=== PATIENT | female | born 1945 | race African-American/Black ===

== ENCOUNTER 2025-01-18 08:08 | Inpatient (IN) | payer MEDICARE, OTHER ==
[~2025-01-18] VITALS: Ht 160 cm; Wt 58.6 kg
[~2025-01-18 08:08] MED LIST: AMLO10TA80 PO; ATOR10TA69 MT; HYDR-4009 MT; LISI2.5T47 MT; MAG1TABL2 PO; METF-414 MT; OMEG100036 PO; TRAZ-252 MT; VIT1CAPS26 MT
[2025-01-18 09:17] LABS: BASOPHILS % 1.0 % (0.0-2.0); EOSINOPHILS % 0.9 % (0.0-5.0); HEMATOCRIT. 47.7 % (36.0-48.0); HEMOGLOBIN. 14.9 g/dL (12.0-16.0); LYMPHOCYTES % 12.1 % (20.0-50.0); MEAN PLATELET VOLUME 8.7 fl (7.4-10.4); MONOCYTES % 6.3 % (2.0-8.0); NEUTROPHILS % 79.7 % (40.0-76.0); PLATELET 246 x1000/uL (130-400); RED BLOOD CELL COUNT 5.41 mill/uL (4.2-5.4); RED CELL DISTRIBUTION WIDTH 16.8 % (11.6-14.6)
[2025-01-18 09:44] LABS: CREATININE 0.8 mg/dL (0.6-1.0); UREA NITROGEN BLOOD 18 mg/dL (9-23)
[2025-01-18 09:45] LABS: TROPONIN I HIGH SENSITIVITY 8 ng/L (3.0-34)
[2025-01-18] MEDS ORDERED: IPRATROPIUM/ALBUTEROL 0.5-3(2.5)MG/3ML NEB HHN PRN (12:00)
[2025-01-18] MEDS ORDERED: DOCUSATE SODIUM 100MG CAPSULE PO PRN (12:00)
[2025-01-18] MEDS ORDERED: ONDANSETRON HCL 4MG/2ML INJ IV PRN (12:00)
[2025-01-18] MEDS ORDERED: CLONIDINE 0.1MG TABLET PO PRN (12:00)
[2025-01-18] MEDS ORDERED: DEXTROSE 50% WATER 50ML SYRINGE IV PRN (12:15)
[2025-01-18] MEDS: HYDROCODONE/ACETAMINOPHEN 5/325MG TABLET PO PRN (12:50)
[2025-01-18] MEDS ORDERED: NALOXONE HCL 0.4MG/ML VIAL IV PRN (13:00)
[2025-01-18] MEDS: BLOOD SUGAR DIAGNOSTIC STRIP TEST SCH (13:00)
[2025-01-18] MEDS: INSULIN LISPRO 100 UNITS/ML SUBCUT SCH (13:20)
[2025-01-18] MEDS: AMLODIPINE 5MG TABLET PO SCH (14:14)
[2025-01-18 15:00] VITALS: BP 138/54; PULSE 68; RESP 20; TEMP 36.4; O2SAT 95
[2025-01-18 16:00] VITALS: BP 122/75; PULSE 74; RESP 18; TEMP 36.2; O2SAT 99
[2025-01-18] MEDS: HYDROCODONE/ACETAMINOPHEN 10/325MG TABLET PO PRN (17:01)
[2025-01-18 17:02] VITALS: BP 138/54; PULSE 68; RESP 18; TEMP 36.4736
[2025-01-18 17:06] LABS: TROPONIN I HIGH SENSITIVITY 20 ng/L (3.0-34)
[2025-01-18 17:15] LABS: FOLIC ACID (FOLATE) SERUM > 20.00 ng/mL (>5.38)
[2025-01-18 17:17] LABS: VITAMIN B12 SERUM > 2000 pg/mL (211-911)
[2025-01-18] MEDS ORDERED: IPRATROPIUM/ALBUTEROL 0.5-3(2.5)MG/3ML NEB HHN SCH (18:00)
[2025-01-18 20:20] VITALS: BP 128/62; PULSE 85; RESP 19; TEMP 36.6; O2SAT 94
[2025-01-18] MEDS: ATORVASTATIN CALCIUM 40MG TABLET PO SCH (20:35)
[2025-01-19] VITALS (9 sets, daily range): BP systolic 102–143; BP diastolic 50–76; PULSE 62–112; RESP 18–26; TEMP 36.1–36.6; O2SAT 82–100
[2025-01-19] MEDS ORDERED: LIDOCAINE HCL/EPINEPHRINE 1%-EPI 1:100,000 10ML VIAL INFIL SCH (01:00)
[2025-01-19] MEDS ORDERED: MDI INH SCH (09:00)
[2025-01-19] MEDS ORDERED: TIOTROPIUM BROMIDE INH SCH (09:00)
[2025-01-19] MEDS: LISINOPRIL 2.5MG TABLET PO SCH (09:25)
[2025-01-19 10:54] LABS: BASOPHILS % 0.4 % (0.0-2.0); EOSINOPHILS % 0.6 % (0.0-5.0); HEMATOCRIT. 46.3 % (36.0-48.0); HEMOGLOBIN. 14.6 g/dL (12.0-16.0); LYMPHOCYTES % 13.8 % (20.0-50.0); MEAN PLATELET VOLUME 9.1 fl (7.4-10.4); MONOCYTES % 5.6 % (2.0-8.0); NEUTROPHILS % 79.6 % (40.0-76.0); PLATELET 249 x1000/uL (130-400); RED BLOOD CELL COUNT 5.22 mill/uL (4.2-5.4); RED CELL DISTRIBUTION WIDTH 16.1 % (11.6-14.6)
[2025-01-19 11:11] LABS: CREATININE 0.7 mg/dL (0.6-1.0)
[2025-01-19 11:12] LABS: TRIGLYCERIDE 70 mg/dL (0-150); UREA NITROGEN BLOOD 16 mg/dL (9-23)
[2025-01-19 11:13] LABS: ASPARTATE AMINOTRANSFERASE 21 IU/L (<34); LDL CHOLESTEROL 100 mg/dL (5-100)
[2025-01-19 11:14] LABS: BILIRUBIN DIRECT 0.3 mg/dL (<=3.0); BILIRUBIN TOTAL 0.9 mg/dL (0.1-1.0); PROTEIN TOTAL 7.0 g/dL (6.0-8.3)
[2025-01-19 11:16] LABS: T4 FREE 1.43 ng/dL (0.89-1.76)
[2025-01-19 11:54] LABS: BG BASE EXCESS 1.1 mmol/L (-2.0-3.0); BG CARBOXYHEMOGLOBIN 2.1 % (0.5-1.5); BG DEOXYHEMOGLOBIN 17.0 % (0.0-5.0); BG FLOW(L/min) 2.00 L/min; BG FRACTION INSPIRED OXYGEN 28; BG HCO3 ACT 25.1 mmol/L (21.0-28.0); BG METHEMOGLOBIN 0.1 % (0.5-1.5); BG OXYGEN SATURATION 82.6 % (94.0-98.0); BG OXYHEMOGLOBIN 80.8 % (94.0-98.0); BG PCO2 38.2 mmHg (32.0-45.0); BG PH 7.436 (7.350-7.450); BG PO2 45.6 mmHg (83.0-108.0); BG SAMPLE SITE LEFT BRACHIAL; BG TOTAL HEMOGLOBIN 15.7 g/dL (12.0-16.0); BG VENT MODE NASAL CANNULA
[2025-01-19] MEDS: IPRATROPIUM/ALBUTEROL 0.5-3(2.5)MG/3ML NEB HHN SCH (12:00)
[2025-01-19] MEDS ORDERED: LIDOCAINE HCL 1% 20ML VIAL INFIL SCH (15:00)
[2025-01-19] MEDS: LIDOCAINE HCL 1% 20ML VIAL INFIL STA (15:12)
[2025-01-19] MEDS: MORPHINE SULFATE 4 MG/ML INJ (FOR IV/IM USE) IV SCH (15:13)
[2025-01-19] MEDS: MIDAZOLAM HCL 2 MG/2 ML VIAL IV SCH (15:14)
[2025-01-19] MEDS: MORPHINE SULFATE 4 MG/ML INJ (FOR IV/IM USE) IV NR (15:15)
[2025-01-19] MEDS ORDERED: MIDAZOLAM HCL 2 MG/2 ML VIAL IV NR (15:30)
[2025-01-19] MEDS: MORPHINE SULFATE 10 MG/ML INJ (NOT FOR IM USE) IV PRN (22:22)
[2025-01-20] VITALS (25 sets, daily range): BP systolic 84–150; BP diastolic 54–119; PULSE 78–112; RESP 14–39; TEMP 36.8–37.1; O2SAT 91–98
[2025-01-20 07:09] LABS: BASOPHILS % 0.2 % (0.0-2.0); EOSINOPHILS % 0.7 % (0.0-5.0); HEMATOCRIT. 43.4 % (36.0-48.0); HEMOGLOBIN. 13.7 g/dL (12.0-16.0); LYMPHOCYTES % 11.3 % (20.0-50.0); MEAN PLATELET VOLUME 9.1 fl (7.4-10.4); MONOCYTES % 7.8 % (2.0-8.0); NEUTROPHILS % 80.0 % (40.0-76.0); PLATELET 226 x1000/uL (130-400); RED BLOOD CELL COUNT 4.96 mill/uL (4.2-5.4); RED CELL DISTRIBUTION WIDTH 16.1 % (11.6-14.6)
[2025-01-20 07:20] LABS: CREATININE 0.8 mg/dL (0.6-1.0); UREA NITROGEN BLOOD 19 mg/dL (9-23)
[2025-01-20 10:57] LABS: BG BASE EXCESS 1.1 mmol/L (-2.0-3.0); BG CARBOXYHEMOGLOBIN 2.2 % (0.5-1.5); BG DEOXYHEMOGLOBIN 5.7 % (0.0-5.0); BG FLOW(L/min) 5.00 L/min; BG FRACTION INSPIRED OXYGEN 40; BG HCO3 ACT 25.1 mmol/L (21.0-28.0); BG METHEMOGLOBIN 0.1 % (0.5-1.5); BG OXYGEN SATURATION 94.2 % (94.0-98.0); BG OXYHEMOGLOBIN 92.0 % (94.0-98.0); BG PCO2 38.4 mmHg (32.0-45.0); BG PH 7.434 (7.350-7.450); BG PO2 67.0 mmHg (83.0-108.0); BG SAMPLE SITE LEFT BRACHIAL; BG TOTAL HEMOGLOBIN 14.7 g/dL (12.0-16.0); BG VENT MODE NASAL CANNULA
[2025-01-20] MEDS: ACETAMINOPHEN 325MG TABLET PO PRN (21:33)
[2025-01-21] VITALS (43 sets, daily range): BP systolic 85–148; BP diastolic 56–103; PULSE 77–102; RESP 11–32; TEMP 36.6–37.3; O2SAT 84–100
[2025-01-21] MEDS ORDERED: MORPHINE SULFATE 2 MG/ML INJ (NOT FOR IM USE) IV ONE (04:15)
[2025-01-21] MEDS: HYDROMORPHONE HCL/PF 1MG/ML INJ IV SCH (05:00)
[2025-01-21] MEDS: FENTANYL CITRATE/PF 50MCG/ML 2ML VIAL IV SCH (05:00)
[2025-01-21 05:44] LABS: BG BASE EXCESS 4.0 mmol/L (-2.0-3.0); BG CARBOXYHEMOGLOBIN 2.0 % (0.5-1.5); BG DEOXYHEMOGLOBIN 5.9 % (0.0-5.0); BG FRACTION INSPIRED OXYGEN 36; BG HCO3 ACT 29.1 mmol/L (21.0-28.0); BG METHEMOGLOBIN 0.3 % (0.5-1.5); BG OXYGEN SATURATION 94.0 % (94.0-98.0); BG OXYHEMOGLOBIN 91.8 % (94.0-98.0); BG PCO2 45.4 mmHg (32.0-45.0); BG PH 7.425 (7.350-7.450); BG PO2 68.5 mmHg (83.0-108.0); BG SAMPLE SITE RIGHT BRACHIAL; BG TOTAL HEMOGLOBIN 15.1 g/dL (12.0-16.0); BG VENT MODE NASAL CANNULA
[2025-01-21 13:07] LABS: PLATELET 224 x1000/uL (130-400); RED BLOOD CELL COUNT 5.04 mill/uL (4.2-5.4); RED CELL DISTRIBUTION WIDTH 16.0 % (11.6-14.6)
[2025-01-21 13:41] LABS: CREATININE 0.7 mg/dL (0.6-1.0); TROPONIN I HIGH SENSITIVITY 5 ng/L (3.0-34)
[2025-01-21 13:42] LABS: UREA NITROGEN BLOOD 13 mg/dL (9-23)
[2025-01-22] VITALS (14 sets, daily range): BP systolic 86–121; BP diastolic 63–79; PULSE 77–107; RESP 16–23; TEMP 36.1–36.9; O2SAT 91–99
[2025-01-23] VITALS (16 sets, daily range): BP systolic 97–144; BP diastolic 63–102; PULSE 85–105; RESP 17–28; TEMP 36.2–37.1; O2SAT 89–99
[2025-01-23 07:38] LABS: BASOPHILS % 0.2 % (0.0-2.0); EOSINOPHILS % 2.1 % (0.0-5.0); HEMATOCRIT. 43.2 % (36.0-48.0); HEMOGLOBIN. 13.8 g/dL (12.0-16.0); LYMPHOCYTES % 19.2 % (20.0-50.0); MEAN PLATELET VOLUME 9.0 fl (7.4-10.4); MONOCYTES % 8.9 % (2.0-8.0); NEUTROPHILS % 69.6 % (40.0-76.0); PLATELET 220 x1000/uL (130-400); RED BLOOD CELL COUNT 4.94 mill/uL (4.2-5.4); RED CELL DISTRIBUTION WIDTH 15.6 % (11.6-14.6)
[2025-01-23 08:20] LABS: CREATININE 0.7 mg/dL (0.6-1.0)
[2025-01-23 08:21] LABS: UREA NITROGEN BLOOD 17 mg/dL (9-23)
[2025-01-23 13:22] LABS: BG BASE EXCESS 2.0 mmol/L (-2.0-3.0); BG CARBOXYHEMOGLOBIN 1.5 % (0.5-1.5); BG DEOXYHEMOGLOBIN 4.7 % (0.0-5.0); BG FRACTION INSPIRED OXYGEN 32; BG HCO3 ACT 26.1 mmol/L (21.0-28.0); BG METHEMOGLOBIN 0.3 % (0.5-1.5); BG OXYGEN SATURATION 95.2 % (94.0-98.0); BG OXYHEMOGLOBIN 93.5 % (94.0-98.0); BG PCO2 39.2 mmHg (32.0-45.0); BG PH 7.441 (7.350-7.450); BG PO2 75.1 mmHg (83.0-108.0); BG SAMPLE SITE RIGHT RADIAL; BG TOTAL HEMOGLOBIN 14.9 g/dL (12.0-16.0); BG VENT MODE NASAL CANNULA
[2025-01-23] MEDS: HYDROCODONE/ACETAMINOPHEN 5/325MG TABLET PO PRN (19:11)
[2025-01-23 22:38] LABS: PLATELET 213 x1000/uL (130-400); RED BLOOD CELL COUNT 4.92 mill/uL (4.2-5.4); RED CELL DISTRIBUTION WIDTH 15.9 % (11.6-14.6)
[2025-01-23 22:57] LABS: CREATININE 0.7 mg/dL (0.6-1.0); UREA NITROGEN BLOOD 14 mg/dL (9-23)
[2025-01-23] MEDS: HYDROCODONE/ACETAMINOPHEN 10/325MG TABLET PO PRN (23:19)
[2025-01-24] VITALS (13 sets, daily range): BP systolic 81–143; BP diastolic 58–85; PULSE 83–123; RESP 17–39; TEMP 36.4–38.1; O2SAT 89–96
[2025-01-24] MEDS: ACETAMINOPHEN 325MG TABLET PO PRN (16:32)
[2025-01-25] VITALS (75 sets, daily range): BP systolic 70–157; BP diastolic 12–90; PULSE 82–120; RESP 16–32; TEMP 36.4–37.1; O2SAT 83–99
[2025-01-25 06:24] LABS: PLATELET 230 x1000/uL (130-400); RED BLOOD CELL COUNT 5.04 mill/uL (4.2-5.4); RED CELL DISTRIBUTION WIDTH 15.3 % (11.6-14.6)
[2025-01-25 06:35] LABS: CREATININE 1.1 mg/dL (0.6-1.0)
[2025-01-25 06:37] LABS: UREA NITROGEN BLOOD 28 mg/dL (9-23)
[2025-01-25 06:39] LABS: PHOSPHORUS 4.0 mg/dL (2.5-4.9)
[2025-01-25] MEDS ORDERED: NALOXONE HCL 0.4MG/ML VIAL IV PRN (07:45)
[2025-01-25] MEDS: SODIUM CHLORIDE 0.9% 500 ML IV ONE (08:32)
[2025-01-25] MEDS: MAGNESIUM 4 G PREMIX 100 ML IV NR (08:32)
[2025-01-25] MEDS: FAMOTIDINE 20MG/2ML VIAL IV SCH (08:34)
[2025-01-25 09:26] LABS: HEMATOCRIT. 43.7 % (36.0-48.0); HEMOGLOBIN. 13.9 g/dL (12.0-16.0); MEAN PLATELET VOLUME 9.2 fl (7.4-10.4); PLATELET 223 x1000/uL (130-400); RED BLOOD CELL COUNT 5.01 mill/uL (4.2-5.4); RED CELL DISTRIBUTION WIDTH 15.7 % (11.6-14.6)
[2025-01-25] MEDS ORDERED: LIDOCAINE HCL 1% 20ML VIAL MC NR (12:30)
[2025-01-25 12:54] LABS: BG BASE EXCESS -0.2 mmol/L (-2.0-3.0); BG CARBOXYHEMOGLOBIN 1.6 % (0.5-1.5); BG DEOXYHEMOGLOBIN 3.7 % (0.0-5.0); BG FLOW(L/min) 4.50 L/min; BG FRACTION INSPIRED OXYGEN 38; BG HCO3 ACT 24.8 mmol/L (21.0-28.0); BG METHEMOGLOBIN 0.1 % (0.5-1.5); BG OXYGEN SATURATION 96.2 % (94.0-98.0); BG OXYHEMOGLOBIN 94.6 % (94.0-98.0); BG PCO2 41.6 mmHg (32.0-45.0); BG PH 7.393 (7.350-7.450); BG PO2 83.3 mmHg (83.0-108.0); BG SAMPLE SITE RIGHT BRACHIAL; BG TOTAL HEMOGLOBIN 15.0 g/dL (12.0-16.0); BG VENT MODE NASAL CANNULA
[2025-01-25] MEDS: MORPHINE SULFATE 4 MG/ML INJ (FOR IV/IM USE) IV NR (13:05)
[2025-01-25] MEDS: MIDAZOLAM HCL 2 MG/2 ML VIAL IV NR (13:06)
[2025-01-25] MEDS: LIDOCAINE HCL 1% 20ML VIAL INFIL NR (13:07)
[2025-01-25] MEDS: TALC 3 GM VIAL IX NR (13:07)
[2025-01-25] MEDS: MORPHINE SULFATE 4 MG/ML INJ (FOR IV/IM USE) IV SCH (14:20)
[2025-01-25 14:44] LABS: BAND% 3.0 % (1.0-6.0); EOSINOPHILS % MANUAL 2.0 % (0.0-5.0); LYMPHOCYTES % MANUAL 10.0 % (20.0-60.0); MONOCYTES % MANUAL 8.0 % (2.0-8.0); NEUTROPHILS % MANUAL 77.0 % (45.0-75.0)
[2025-01-25 14:45] LABS: PLATELET ESTIMATE NORMAL
[2025-01-25] MEDS: LIDOCAINE HCL 1% 20ML VIAL INFIL SCH (15:01)
[2025-01-25 17:00] LABS: CREATININE 1.1 mg/dL (0.6-1.0)
[2025-01-25 17:01] LABS: UREA NITROGEN BLOOD 33 mg/dL (9-23)
[2025-01-25] MEDS: PIPERACILLIN/TAZO 3.375G/50ML 50 ML IV SCH (17:27)
[2025-01-25 18:17] LABS: CLARITY URINE CLEAR (CLEAR); COLOR URINE DARK YELLOW (YELLOW)
[2025-01-25 18:18] LABS: GLUCOSE URINE NEGATIVE (NEGATIVE); KETONES URINE 1+ (NEGATIVE); LEUKOCYTE ESTERASE URINE NEGATIVE (NEGATIVE); NITRITE URINE NEGATIVE (NEGATIVE); OCCULT BLOOD URINE NEGATIVE (NEGATIVE); PH URINE 5.0 (4.5-8.0); PROTEIN URINE TRACE (NEGATIVE); SPECIFIC GRAVITY URINE 1.022 (1.005-1.030); UROBILINOGEN URINE 1.0 E.U./dL (0.2-1.0)
[2025-01-25 18:28] LABS: BACTERIA URINE 2+; RBC URINE 0-2 /hpf (0-2); SQUAMOUS EPITHELIAL CELL URINE 1+ /lpf (RARE/1+); WBC URINE 0-2 /hpf (0-2)
[2025-01-25] MEDS: SENNOSIDES/DOCUSATE SOD 8.6/50MG TABLET PO SCH (21:35)
[2025-01-25] MEDS: FENTANYL CITRATE/PF 50MCG/ML 2ML VIAL IV NR (22:51)
[2025-01-26] VITALS (69 sets, daily range): BP systolic 73–140; BP diastolic 48–123; PULSE 90–124; RESP 10–35; TEMP 37–37.1; O2SAT 80–99
[2025-01-26 07:03] LABS: PLATELET 220 x1000/uL (130-400); RED BLOOD CELL COUNT 4.68 mill/uL (4.2-5.4); RED CELL DISTRIBUTION WIDTH 15.6 % (11.6-14.6)
[2025-01-26 07:21] LABS: CREATININE 1.0 mg/dL (0.6-1.0); UREA NITROGEN BLOOD 32 mg/dL (9-23)
[2025-01-26] MEDS: MORPHINE SULFATE 4 MG/ML INJ (FOR IV/IM USE) IV PRN (08:27)
[2025-01-26] MEDS: SODIUM CHLORIDE 0.9% 1,000 ML IV SCH (08:28)
[2025-01-27] VITALS (70 sets, daily range): BP systolic 80–135; BP diastolic 42–89; PULSE 80–118; RESP 15–36; TEMP 36.7–37.1; O2SAT 75–97
[2025-01-27] MEDS: GUAIFENESIN 200MG/10ML SUGAR FREE UDC PO PRN (07:57)
[2025-01-27 08:13] LABS: PLATELET 225 x1000/uL (130-400); RED BLOOD CELL COUNT 4.20 mill/uL (4.2-5.4); RED CELL DISTRIBUTION WIDTH 15.3 % (11.6-14.6)
[2025-01-27 08:30] LABS: CREATININE 0.6 mg/dL (0.6-1.0)
[2025-01-27 08:31] LABS: UREA NITROGEN BLOOD 16 mg/dL (9-23)
[2025-01-27 08:32] LABS: ASPARTATE AMINOTRANSFERASE 41 IU/L (<34)
[2025-01-27 08:33] LABS: BILIRUBIN TOTAL 0.6 mg/dL (0.1-1.0); PROTEIN TOTAL 6.3 g/dL (6.0-8.3)
[2025-01-27] MEDS: POLYETHYLENE GLYCOL 3350 (17GM) 1 DOSE PACK PO SCH (10:58)
[2025-01-27] MEDS: NA PHOS,M-B/NA PHOS,DI-BA ENEMA 118ML PR NR (14:23)
[2025-01-28] VITALS (65 sets, daily range): BP systolic 93–134; BP diastolic 49–77; PULSE 71–99; RESP 15–32; TEMP 36.3–36.9; O2SAT 91–99
[2025-01-28 06:43] LABS: BASOPHILS % 0.6 % (0.0-2.0); EOSINOPHILS % 3.9 % (0.0-5.0); HEMATOCRIT. 37.1 % (36.0-48.0); HEMOGLOBIN. 11.7 g/dL (12.0-16.0); LYMPHOCYTES % 7.6 % (20.0-50.0); MEAN PLATELET VOLUME 9.2 fl (7.4-10.4); MONOCYTES % 11.5 % (2.0-8.0); NEUTROPHILS % 76.4 % (40.0-76.0); PLATELET 259 x1000/uL (130-400); RED BLOOD CELL COUNT 4.24 mill/uL (4.2-5.4); RED CELL DISTRIBUTION WIDTH 15.6 % (11.6-14.6)
[2025-01-28 07:11] LABS: CREATININE 0.7 mg/dL (0.6-1.0)
[2025-01-28 07:12] LABS: UREA NITROGEN BLOOD 13 mg/dL (9-23)
[2025-01-28 07:14] LABS: PHOSPHORUS 1.7 mg/dL (2.5-4.9)
[2025-01-28] MEDS: MAGNESIUM 2 G PREMIX 50 ML IV NR (09:31)
[2025-01-28] MEDS: POTASSIUM PHOSPHATE 10 MMOL in DEXT 5% WATER 246.6667 ML IV NR (14:49)
[2025-01-28] MEDS: ENOXAPARIN 40MG/0.4ML SYR SUBCUT SCH (15:50)
[2025-01-28] MEDS: HYDROCODONE/ACETAMINOPHEN 5/325MG TABLET PO PRN (20:51)
[2025-01-28 23:18] LABS: PHOSPHORUS 2.1 mg/dL (2.5-4.9)
[2025-01-29] VITALS (28 sets, daily range): BP systolic 94–174; BP diastolic 53–161; PULSE 74–98; RESP 16–35; TEMP 36.7–37; O2SAT 93–99
[2025-01-29] MEDS: POTASSIUM PHOSPHATE 30 MMOL in SODIUM CHLORIDE 0.9% 490 ML IV NR (03:37)
[2025-01-29 07:11] LABS: PLATELET 305 x1000/uL (130-400); RED BLOOD CELL COUNT 4.26 mill/uL (4.2-5.4); RED CELL DISTRIBUTION WIDTH 15.3 % (11.6-14.6)
[2025-01-29 07:28] LABS: CREATININE 0.6 mg/dL (0.6-1.0); UREA NITROGEN BLOOD 8 mg/dL (9-23)
[2025-01-29] MEDS: LISINOPRIL 2.5MG TABLET PO SCH (09:30)
[2025-01-29 18:09] LABS: PHOSPHORUS 3.1 mg/dL (2.5-4.9)
[2025-01-29] MEDS: MELATONIN 3MG TABLET PO SCH (21:16)
[2025-01-30 00:03] VITALS: BP 95/57; PULSE 80; RESP 21; TEMP 37.1; O2SAT 93
[2025-01-30 04:00] VITALS: BP 104/76; PULSE 78; RESP 20; TEMP 36.7; O2SAT 98
[2025-01-30 08:00] VITALS: BP 110/77; PULSE 78; RESP 17; TEMP 36.8; O2SAT 98
[2025-01-30] MEDS ORDERED: NA PHOS,M-B/NA PHOS,DI-BA ENEMA 118ML PR PRN (10:30)
[2025-01-30] MEDS ORDERED: MAGNESIUM HYDROXIDE 400MG/5ML 30ML UDC PO PRN (10:30)
[2025-01-30 12:00] VITALS: BP 103/68; PULSE 70; RESP 24; TEMP 36.7; O2SAT 96
[2025-01-30] MEDS: SENNOSIDES/DOCUSATE SOD 8.6/50MG TABLET PO SCH (12:36)
[2025-01-30 16:00] VITALS: BP 113/54; PULSE 84; RESP 18; TEMP 36.8; O2SAT 94
[2025-01-30 20:00] VITALS: BP 125/76; PULSE 75; RESP 27; TEMP 36.8; O2SAT 96
[2025-01-30 21:22] LABS: PHOSPHORUS 3.5 mg/dL (2.5-4.9)
[2025-01-30] MEDS: MAGNESIUM 2 G PREMIX 50 ML IV NR (23:33)
[2025-01-31] VITALS: BP 129/68; PULSE 80; RESP 15; TEMP 36.8; O2SAT 99
[2025-01-31 04:15] VITALS: BP 109/88; PULSE 70; RESP 22; TEMP 36.7; O2SAT 97
[2025-01-31 08:00] VITALS: BP 128/76; PULSE 83; RESP 19; TEMP 36.8; O2SAT 97
[2025-01-31 08:09] LABS: PLATELET 412 x1000/uL (130-400); RED BLOOD CELL COUNT 4.43 mill/uL (4.2-5.4); RED CELL DISTRIBUTION WIDTH 15.4 % (11.6-14.6)
[2025-01-31 08:38] LABS: CREATININE 0.6 mg/dL (0.6-1.0); UREA NITROGEN BLOOD 8 mg/dL (9-23)
[2025-01-31] MEDS ORDERED: MAGNESIUM 4 G PREMIX 100 ML IV NR (09:00)
[2025-01-31 12:00] VITALS: BP 119/59; PULSE 74; RESP 21; TEMP 36.6; O2SAT 99
[2025-01-31] MEDS ORDERED: NALOXONE HCL 0.4MG/ML VIAL IV PRN (14:15)
[2025-01-31] MEDS: MAGNESIUM 2 G PREMIX 50 ML IV SCH (14:19)
[2025-01-31 14:25] VITALS: BP 119/59; PULSE 74; RESP 21; TEMP 97.9
[2025-01-31 16:00] VITALS: BP 119/59; PULSE 74; RESP 21
== END 2025-01-31 18:01 | disposition home or self-care (01) | DRG 199 ==
LOC: ER 08:08 → 7WST 10:55 → EDBEDREQ 10:57 → EDBEDREQTM 10:57 → ENRESERV 11:50 → 5EST 01-19 14:46 → CVICU 01-25 06:20 → 3WST 01-29 11:01
PROVIDERS: ADMIT Internal Medicine; ATTEND Internal Medicine
PROC: 0W9930Z Drainage of Right Pleural Cavity with Drainage Device, Percutaneous Approach (ICD-10-PCS; principal; 2025-01-18)
PROC: 0W9930Z Drainage of Right Pleural Cavity with Drainage Device, Percutaneous Approach (ICD-10-PCS; 2025-01-19)
PROC: 0W9930Z Drainage of Right Pleural Cavity with Drainage Device, Percutaneous Approach (ICD-10-PCS; 2025-01-19)
PROC: 0WP9X0Z Removal of Drainage Device from Right Pleural Cavity, External Approach (ICD-10-PCS; 2025-01-25)
PROC: 3E0L3GC Introduction of Other Therapeutic Substance into Pleural Cavity, Percutaneous Approach (ICD-10-PCS; 2025-01-25)
PROC: 0W9930Z Drainage of Right Pleural Cavity with Drainage Device, Percutaneous Approach (ICD-10-PCS; 2025-01-25)
DX: T79.7XXA Traumatic subcutaneous emphysema, initial encounter (principal); J69.0 Pneumonitis due to inhalation of food and vomit; J96.21 Acute and chronic respiratory failure with hypoxia; J93.82 Other air leak; N17.9 Acute kidney failure, unspecified; J93.83 Other pneumothorax; I10 Essential (primary) hypertension; E11.65 Type 2 diabetes mellitus with hyperglycemia; E78.5 Hyperlipidemia, unspecified; K59.00 Constipation, unspecified; E87.6 Hypokalemia; E83.39 Other disorders of phosphorus metabolism; E83.42 Hypomagnesemia; Z86.718 Personal history of other venous thrombosis and embolism; Z85.3 Personal history of malignant neoplasm of breast; Z90.710 Acquired absence of both cervix and uterus; Z92.21 Personal history of antineoplastic chemotherapy; Z92.3 Personal history of irradiation; Z90.13 Acquired absence of bilateral breasts and nipples; Z82.49 Family history of ischemic heart disease and other diseases of the circulatory system; Z87.891 Personal history of nicotine dependence; Z79.01 Long term (current) use of anticoagulants; Z79.84 Long term (current) use of oral hypoglycemic drugs; Z79.899 Other long term (current) drug therapy; Z86.711 Personal history of pulmonary embolism; Z86.73 Personal history of transient ischemic attack (TIA), and cerebral infarction without residual deficits; Z85.118 Personal history of other malignant neoplasm of bronchus and lung; X58.XXXA Exposure to other specified factors, initial encounter; Y93.89 Activity, other specified; Y92.89 Other specified places as the place of occurrence of the external cause; Y99.8 Other external cause status
CPT/HCPCS: 32551; 36415; 36600; 71045; 71250; 80048; 80053; 80061; 80076; 81003; 82040; 82375; 82550; 82607; 82746; 82805; 82962; 83036; 83605; 83735; 84100; 84145; 84439; 84443; 84484; 85025; 85027; 86850; 86900; 93005; 94070; 94640; 94664; 94760; 97162; 97530; 98960; 99285; A4606; J1308; J1650; J1815; J2003; J2250; J2270; J2543; J3010; J3475; J3490; J7030; J7040; J7060